=== PATIENT | male | born 1985 | race Caucasian/White ===

== ENCOUNTER 2018-03-08 06:51 | Day surgery (SDC) | payer SELFPAY ==
[~2018-03-08] VITALS: Ht 175.3 cm; Wt 65.5 kg
[2018-03-08] MEDS ORDERED: TORADOL 10MG TA10 MG PO (07:16)
[2018-03-08] MEDS ORDERED: FLOMAX 0.40.4 MG/CAP PO ×2 (07:17→10:45)
[2018-03-08] MEDS ORDERED: XANAX 0.5MG0.5 MG PO (07:17)
[2018-03-08 07:59] VITALS: BP 139/86; PULSE 51; TEMP 98
[2018-03-08 10:25] VITALS: BP 155/94; PULSE 54; TEMP 98.2
[2018-03-08 10:40] VITALS: BP 141/85; PULSE 79
[2018-03-08] MEDS ORDERED: PERCOCET 325 MG1 TA3 PO (10:44)
[2018-03-08] MEDS ORDERED: PYRIDIUM 100MG100 MG PO (10:45)
[2018-03-08 10:55] VITALS: BP 156/71; PULSE 57
[2018-03-08 11:10] VITALS: BP 148/72; PULSE 56
[2018-03-08 11:40] VITALS: BP 144/85; PULSE 65
== END 2018-03-08 11:50 | disposition home or self-care (01) ==
LOC: SDCO 06:51
DX: N20.2 Calculus of kidney with calculus of ureter (principal); I10 Essential (primary) hypertension; F17.210 Nicotine dependence, cigarettes, uncomplicated
CPT/HCPCS: C1769; C2617; J0690; J1100; J1885; J2405; J2704; J3010; J7120; Q9967

== ENCOUNTER 2018-03-14 14:12 | Emergency (ER) | payer SELFPAY ==
[~2018-03-14] VITALS: Ht 175.3 cm; Wt 65.9 kg
[~2018-03-14 14:12] MED LIST: FLOMAX 0.40.4 MG/CAP PO; PERCOCET 325 MG1 TA3 PO; PYRIDIUM 100MG100 MG PO; TORADOL 10MG TA10 MG PO; XANAX 0.5MG0.5 MG PO
[2018-03-14 14:16] VITALS: TEMP 98.2
[2018-03-14 14:59] LABS: COLLECTION METHOD CLEAN CATCH
[2018-03-14 15:05] LABS: BASO % 0.5 % (0.0-2.0); EOS # 0.1 (0.0-0.7); EOS % 1.3 % (0-4.0); GRAN # 4.4 (1.4-6.5); GRAN % 72.4 % (42.2-75.2); HEMATOCRIT 44.5 % (42.0-52.0); LYMPH # 1.2 (1.2-3.4); LYMPH % 19.6 % (20.0-51.0); MEAN CELL VOLUME 86 fl (80.0-100.0); MEAN CORPUSCULAR HEMOGLOBIN 29 pg (27.0-31.0); MEAN CORPUSCULAR HGB CONC 34 g/dl (33.0-37.0); MEAN PLATELET VOLUME 10.5 fl (7.4-10.4); MONO # 0.4 (0.1-0.6); PLATELET COUNT 290 K/mm3 (130-400); RED BLOOD COUNT 5.19 M/mm3 (4.20-5.60); REDCELL DISTRIBUTION WIDTH-CV 13.2 % (11.5-14.5)
[2018-03-14 15:10] LABS: PH 8 (5-8); SQUAMOUS EPITHELIAL None Seen /hpf; URINE APPEARANCE Clear; URINE BACTERIA None Seen /hpf; URINE BILIRUBIN Negative (NEGATIVE); URINE BLOOD 3+ (NEGATIVE); URINE COLOR Straw; URINE GLUCOSE Negative (NEGATIVE); URINE KETONE Negative (NEGATIVE); URINE LEUKOCYTE ESTERASE Negative (NEGATIVE); URINE NITRATE Negative (NEGATIVE); URINE PROTEIN(semi-quant) Negative (NEGATIVE); URINE UROBILINOGEN Negative (NEGATIVE)
[2018-03-14 15:15] LABS: ALBUMIN 4.6 gm/dL (3.5-5.0); BILIRUBIN,TOTAL 0.7 mg/dL (0.0-1.0); C-REACTIVE PROTEIN 0.9 mg/dL (0.0-0.9); CALCIUM 9.7 mg/dL (8.4-10.2); CREATININE, serum 1.02 mg/dL (0.66-1.25); POTASSIUM 4.6 mmol/L (3.4-5.0); TOTAL PROTEIN 8.1 gm/dL (6.4-8.2)
[2018-03-14] MEDS ORDERED: ZOFRAN 4MG T4 MG/TAB PO (16:29)
[2018-03-14] MEDS ORDERED: NORCO 325 MG-51 TAB PO (16:29)
[2018-03-14] MEDS ORDERED: PHENERGAN 25 TA25 MG PO (16:35)
[2018-03-14 16:49] VITALS: BP 144/88; PULSE 81
== END 2018-03-14 16:52 | disposition home or self-care (01) ==
LOC: COL.ER 14:12
PROVIDERS: Family Medicine
DX: N23 Unspecified renal colic (principal); N13.30 Unspecified hydronephrosis; Z87.891 Personal history of nicotine dependence
CPT/HCPCS: J1170; J1200; J1885; J2765; J7030; Q9967

== ENCOUNTER 2019-06-17 12:48 | Emergency (ER) | payer SELFPAY ==
[~2019-06-17] VITALS: Ht 172.7 cm; Wt 54.5 kg
[~2019-06-17 12:48] MED LIST changes: +NORCO 325 MG-51 TAB PO; +PHENERGAN 25 TA25 MG PO; +ZOFRAN 4MG T4 MG/TAB PO
[2019-06-17 12:56] VITALS: BP 137/86; TEMP 99.1
[2019-06-17 13:14] LABS: COLLECTION METHOD CLEAN CATCH
[2019-06-17 13:20] LABS: PH 8 (5-8); SQUAMOUS EPITHELIAL None Seen /hpf; URINE APPEARANCE Clear; URINE BACTERIA None Seen /hpf; URINE BILIRUBIN Negative (NEGATIVE); URINE BLOOD Negative (NEGATIVE); URINE COLOR Colorless; URINE GLUCOSE Negative (NEGATIVE); URINE KETONE Negative (NEGATIVE); URINE LEUKOCYTE ESTERASE Negative (NEGATIVE); URINE NITRATE Negative (NEGATIVE); URINE PROTEIN(semi-quant) Negative (NEGATIVE); URINE RBC 0-2 /hpf; URINE UROBILINOGEN Negative (NEGATIVE)
[2019-06-17 13:53] LABS: BASO % 0.6 % (0.0-2.0); EOS % 0.4 % (0-4.0); GRAN # 3.6 (1.4-6.5); GRAN % 68.7 % (42.2-75.2); HEMATOCRIT 44.1 % (42.0-52.0); HEMOGLOBIN 15.4 g/dl (13.5-18.0); LYMPH # 1.2 (1.2-3.4); LYMPH % 22.2 % (20.0-51.0); MEAN CELL VOLUME 85 fl (80.0-100.0); MEAN CORPUSCULAR HEMOGLOBIN 30 pg (27.0-31.0); MEAN CORPUSCULAR HGB CONC 35 g/dl (33.0-37.0); MEAN PLATELET VOLUME 10.3 fl (7.4-10.4); MONO # 0.4 (0.1-0.6); MONO % 7.9 % (1.7-9.3); PLATELET COUNT 227 K/mm3 (130-400); RED BLOOD COUNT 5.18 M/mm3 (4.20-5.60); REDCELL DISTRIBUTION WIDTH-CV 12.2 % (11.5-14.5)
[2019-06-17 14:17] LABS: ALANINE AMINOTRANSFERASE 50 U/L (21-72); ALBUMIN 4.8 gm/dL (3.5-5.0); ALKALINE PHOSPHATASE 71 U/L (50-136); ANION GAP 9 mmol/L (7-16); AST,SGOT 38 U/L (15-37); BILIRUBIN,TOTAL 0.7 mg/dL (0.0-1.0); BLOOD UREA NITROGEN 15 mg/dL (9-20); CALCIUM 9.5 mg/dL (8.4-10.2); CARBON DIOXIDE 26 mmol/L (22-30); CHLORIDE 104 mmol/L (98-107); CREATININE, serum 1.18 (0.66-1.25); GLUCOSE 95 mg/dL (74-106); LIPASE 84 U/L (23-300); POTASSIUM 4.1 mmol/L (3.4-5.0); SODIUM 139 mmol/L (137-145); TOTAL PROTEIN 7.9 gm/dL (6.4-8.2)
[2019-06-17 14:18] LABS: C-REACTIVE PROTEIN < 0.5 mg/dL (0.0-0.9)
[2019-06-17 16:10] LABS: ACETAMINOPHEN < 10 ug/mL (10-30); SALICYLATE < 1.0 mg/dL
[2019-06-17 16:25] LABS: TRICYCLIC ANTIDEPRESS URINE NEGATIVE
[2019-06-17] MEDS ORDERED: FLEXERIL 1010 MG/TAB PO (17:19)
[2019-06-17 17:22] VITALS: PULSE 85
== END 2019-06-17 17:25 | disposition home or self-care (01) ==
LOC: COL.ER 12:48
PROVIDERS: Emergency Medicine; Family Medicine
DX: R45.851 Suicidal ideations (principal); R10.9 Unspecified abdominal pain; G89.29 Other chronic pain; Z87.891 Personal history of nicotine dependence; Z87.442 Personal history of urinary calculi
CPT/HCPCS: J1885; J2550; J7030; Q9967